=== PATIENT | female | born 1995 | race Caucasian/White ===

== ENCOUNTER 2021-01-25 18:20 | Emergency (ER) | payer MEDICAID, SELFPAY ==
[2021-01-25 18:49] VITALS: BP 128/86; PULSE 87; RESP 16; TEMP 36.9; O2SAT 100; BMI 39.1
[2021-01-25 23:31] LABS: Basophils # 0.1 10^3/uL (0.0-0.1); Basophils % 0.5 %; Eosinophils # 0.1 10^3/uL (0.0-0.8); Eosinophils % 0.5 %; Hematocrit 27.5 % (37.0-47.0); Hemoglobin 7.9 g/dL (11.5-15.3); Lymphocytes # 3.8 10^3/uL (0.8-4.8); Lymphocytes % 38.2 %; Mean Corpuscular HGB Conc 28.7 g/dL (30.0-36.0); Mean Corpuscular Hemoglobin 21.9 pg (28.0-34.0); Mean Corpuscular Volume 76.2 fL (81-99); Mean Platelet Volume 9.7 fL (7.4-10.4); Monocytes # 0.6 10^3/uL (0.2-0.9); Neutrophils # 5.42 10^3/uL (1.8-7.7); Neutrophils % 53.8 %; Nucleated Red Blood Cells % 0 %; Platelet Count 408 10^3/cmm (130-400); Red Blood Count 3.61 10^6/uL (4.1-5.3); Red Cell Distribution Width 16.1 % (12.1-15.1); White Blood Count 10.1 10^3/uL (4.0-10.0)
--- NOTE | 2021-01-25 23:37 | W.ED.FEMALGU ---
HPI - Female Genitourinary General: Chief complaint: Vaginal Bleeding Stated complaint: Period for 4 wks Time Seen by Provider: 01/25/21 23:21 History of Present Illness: HPI Narrative: Patient is a 25-year-old female comes to the ED with vaginal bleeding. Patient says she has been bleeding now for approximately 4 weeks. She says the bleeding has been fairly heavy and she is passing large blood clots now. She goes through 3-4 heavy pads a day for the past couple days. She is complaining of having some dizziness, fatigue and abdominal cramping. Denies any syncopal episode. Patient has been on the Depo shot since April 2020. Her last Depo shot was in October. She is started developing the bleeding and contacted her OB doctor and they sent her prescription of oral control to take to try to minimize the bleeding, but that did not work and I told her to stop taking it. She states she has been taking some Tylenol or Motrin to help with any cramping. She has an appointment with her OB doctor on February 07. Associated symptoms: Deny abdominal pain, headache(s) or nausea Date of Last Menstrual Period: 01/25/21 Review of Systems Const: Reports: fatigue; Denies: fever(s) or chills Eyes: Denies: change in vision or eye discomfort ENMT: Denies: throat pain, odynophagia, nasal discharge or nasal congestion Card: Denies: chest pain, palpitations, edema, swelling of feet/ankles, dyspnea on exertion or orthopnea Resp: Denies: dyspnea, productive cough or non-productive cough GI: Denies: abdominal pain, nausea, vomiting, diarrhea, constipation or hematochezia : Reports: vaginal bleeding (4 weeks of bleeding and passing clots.) and pelvic pain (Episodes of cramping pain); Denies: flank pain, dysuria or hematuria Musc: Denies: neck pain, back pain or extremity swelling Skin/Breast: Denies: rash or new lesions Neuro: Denies: headache(s), numbness in extremities or weakness in extremities [facility] ED Female Reproductive History: Date of last menstrual period: 01/25/21 Physical Exam Const: COMMON NORMALS: no acute distress, patient oriented x3, healthy appearing and alert GENERAL APPEARANCE: cooperative and comfortable HENMT: COMMON NORMALS: normocephalic HEAD & SCALP: normocephalic MOUTH: Normal oral and palatal mucosa present THROAT: posterior oropharynx normal and uvula midline Eye: COMMON NORMALS: Equal, round and reactive pupils present PUPIL: Yes Equal, round and reactive pupils present Neck/C-Spine: COMMON NORMALS: supple GENERAL: Yes normal visual inspection Resp: COMMON NORMALS: normal respiratory effort, No retractions, No use of accessory muscles and clear to auscultation bilaterally EFFORT & INSPECTION: Yes able to speak in complete sentences, No tachypneic, No respiratory distress and No labored AUSCULTATION: clear to auscultation bilaterally Cardio: COMMON NORMALS: regular rate, regular rhythm, S1 normal heart sound present, S2 normal heart sound present, No gallops present (Cardio), No clicks present (Cardio), No murmurs present (Cardio) and Peripheral pulses 2+ throughout RATE: regular rate RHYTHM: regular rhythm HEART SOUNDS: S1 normal heart sound present and S2 normal heart sound present PERIPHERAL PULSES: Peripheral pulses 2+ throughout GI: COMMON NORMALS: Normal to inspection, nondistended, normoactive bowel sounds present, Soft to palpation, non-tender and no masses PALPATION: Yes Soft to palpation : COMMON NORMALS: Yes no CVA tenderness BLADDER/KIDNEY EXAM: Yes no CVA tenderness Back/Pelvis: COMMON NORMALS: no CVA tenderness Extremity: COMMON NORMALS: normal to inspection Neuro: COMMON NORMALS: patient oriented x3 and moves all extremities SENSORIUM/ORIENTATION: Yes alert Skin: GENERAL SKIN EXAM: dry skin Course Vital Signs: Vital signs: Vital Signs Temperature 98.1 F 01/26/21 03:30 Pulse Rate 85 01/26/21 03:30 Respiratory Rate 16 01/26/21 03:30 Blood Pressure 110/78 01/26/21 03:30 Pulse Oximetry 100 01/26/21 03:30 MDM - Female MDM Narrative: Medical decision making narrative: Patient is a 25-year-old female comes to the ED with vaginal bleeding. Patient takes the Depo shot and had her most recent shot in October. She has been bleeding for 4 weeks had been passing large clots. She says over the past couple days her bleeding has slowed down and she is now going through about 4 heavy pads a day. She is feeling symptoms of dizziness, fatigue and cramping. Denies any syncopal episodes. Exam of patient is benign. Hemoglobin was 7.9 the rest of CBC was unremarkable. hCG serum negative. Type and screen was performed and patient was transfused 2 units of RBCs while here in the ED. Ultrasound of the pelvis showed no acute findings. Patient diagnosed with abnormal uterine bleeding and anemia and discharged home. She was told to follow-up with her PCP to have her hemoglobin level rechecked in about 3 days. She was also told to contact her instructional supervisor doctor to get an earlier appointment set up for her to be seen and evaluated. She currently has an appointment with her OB doctor on 07 of February. Return to ED precautions given. Patient understood and agree with plan. Lab Data: Attestation: I reviewed the patient's lab results. Labs: Lab Results 01/25/21 01/25/21 01/25/21 Range/Units 23:28 23:28 23:52 WBC 10.1 H (4.0-10.0) 10^3/ uL RBC 3.61 L (4.1-5.3) 10^6/u L Hgb 7.9 L (11.5-15.3) g/dL Hct 27.5 L (37.0-47.0) % MCV 76.2 L (81-99) fL MCH 21.9 L (28.0-34.0) pg MCHC 28.7 L (30.0-36.0) g/dL RDW 16.1 H (12.1-15.1) % Plt Count 408 H (130-400) 10^3/c mm MPV 9.7 (7.4-10.4) fL Neut % (Auto) 53.8 % Lymph % (Auto) 38.2 % [place] % (Auto) 6.0 % Eos % (Auto) 0.5 % Baso % (Auto) 0.5 % Neut # (Auto) 5.42 (1.8-7.7) 10^3/u L Lymph # (Auto) 3.8 (0.8-4.8) 10^3/u L [place] # (Auto) 0.6 (0.2-0.9) 10^3/u L Eos # (Auto) 0.1 (0.0-0.8) 10^3/u L Baso # (Auto) 0.1 (0.0-0.1) 10^3/u L Nucleated RBC % (a uto) 0 % Nucleated RBCs # 0.0 /100WBC HCG, Qual Negative (Negative) Blood Type B Positive Rho(D) Type Positive / 4+ Antibody Screen Negative Crossmatch See Detail Imaging Data: US OB: Attestation: I personally reviewed and interpreted this imaging study as follows: Radiologist's impression: [address] [address] Ultrasound Report Signed Patient: Andrey Brady Unit #: [id number] : [id number] Age/Sex: 25 / F ADM Date: 01/25/21 Loc: ER Room/Bed: Attending Dr: Ordering Provider/Ordering MD: Eric Hurst Date of Service: 01/26/21 Procedure(s): US transvaginal [id number] Accession Number(s): [id number] Report Number: [id number] PROCEDURE INFORMATION: Exam: US Pelvis, Transvaginal Exam date and time: 01/26/2021 11:45 PM Age: 25 years old Clinical indication: Menstruation abnormalities; Other: Vag bleed; Additional info: Vaginal bleeding for 4 weeks, on depo for bc since 2019. Hcg negative TECHNIQUE: Imaging protocol: Real-time transvaginal pelvic ultrasound with image documentation. Transvaginal imaging was used for better evaluation of the endometrium, adnexa, and/or cervix. COMPARISON: No relevant prior studies available. FINDINGS: Uterus/cervix: The uterus measures 6.9 by 5.4 x 4.7 cm. 5 mm endometrial stripe. Right adnexa: Right ovary is normal and measures 2.7 by 2 x 2.3 cm. Normal ovarian blood flow. Left adnexa: Left ovary is normal and measures 2.3 x 2.3 x 2.7 cm . Normal ovarian blood flow. Intraperitoneal space: No free fluid. US/US transvaginal [id number] IMPRESSION: Negative pelvic ultrasound. Dictated By: Jian Parish Signed By: Jian Parish Signed Date/Time: 01/26/21301 DD/ 9 Discharge Plan Discharge Patient Disposition: Home Clinical Impression: Abnormal uterine bleeding Anemia Qualifiers: Anemia type: other cause Other causes of anemia: other cause, not classified Qualified Code(s): D64.89 - Other specified anemias Condition: Stable Discharge Orders: Discharge ED (Routine); Ordered 01/26/21 Ordered By: Eric Hurst Discharge Diet: Regular Discharge Activity: Increase activity as tolerated Patient Instructions: Anemia (ED), Abnormal Uterine Bleeding Activity Restrictions/Additional Instructions: Follow-up with medical provider as directed. Contact your instructional supervisor doctor tomorrow to discuss ED visit and 2 units of blood transfusions and set up an appointment with them soon as possible for reevaluation. You can have your hemoglobin rechecked in about 3 days at your PCP office. Return to the ER or your medical provider if condition worsens. Please read and understand discharge instructions. Thank you for choosing [facility] for your healthcare needs today. Please realize this is an emergency room and that we are providing you with a medical screening exam and this may not be complete and all inclusive of all the testing and or work up that you may need to determine your ailment or severity of your illness. It is very important that you follow up as instructed or that you return to the Emergency Department should you have concerns or if your condition changes or worsens in any way. 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
[2021-01-25 23:44] LABS: HCG, Serum Qual Negative (Negative)
[2021-01-26] VITALS (13 sets, daily range): BP systolic 105–138; BP diastolic 63–89; PULSE 73–97; RESP 14–20; TEMP 36.7–37.3; O2SAT 97–100
--- NOTE | 2021-01-26 01:05 | PC.NURSE ---
Pt signed consent for blood.
--- NOTE | 2021-01-26 01:28 | PC.NURSE ---
Stayed in room while US was performed. Pt tolerated well.
[2021-01-26] MEDS: acetaminophen 500 mg Tablet 1000 MG PO (01:37)
--- NOTE | 2021-01-26 03:17 | PC.NURSE ---
Resting, eyes closed, easily awakened. Lights down for comfort. Blood transfusing. Will continue to monitor.
--- NOTE | 2021-01-26 23:45 | USR_ITS ---
PROCEDURE INFORMATION: Exam: US Pelvis, Transvaginal Exam date and time: 01/26/2021 11:45 PM Age: 25 years old Clinical indication: Menstruation abnormalities; Other: Vag bleed; Additional info: Vaginal bleeding for 4 weeks, on depo for bc since 2019. Hcg negative TECHNIQUE: Imaging protocol: Real-time transvaginal pelvic ultrasound with image documentation. Transvaginal imaging was used for better evaluation of the endometrium, adnexa, and/or cervix. COMPARISON: No relevant prior studies available. FINDINGS: Uterus/cervix: The uterus measures 6.9 by 5.4 x 4.7 cm. 5 mm endometrial stripe. Right adnexa: Right ovary is normal and measures 2.7 by 2 x 2.3 cm. Normal ovarian blood flow. Left adnexa: Left ovary is normal and measures 2.3 x 2.3 x 2.7 cm . Normal ovarian blood flow. Intraperitoneal space: No free fluid. US/US transvaginal [id number] IMPRESSION: Negative pelvic ultrasound.
== END 2021-01-26 07:54 | disposition home or self-care (01) ==
PROVIDERS: Emergency Medicine; Emergency Provider Family Medicine
DX: N93.9 Abnormal uterine and vaginal bleeding, unspecified (principal); D64.89 Other specified anemias
CPT/HCPCS: 36430; 76830; 84703; 85025; 86850; 86900; 86920; 99284; P9016